=== PATIENT | female | born 1950 | race Caucasian/White ===

== ENCOUNTER 2020-03-12 04:47 | Emergency (ER) | payer OTHER ==
[~2020-03-12] VITALS: Ht 157.5 cm; Wt 66.7 kg
[2020-03-12 04:50] VITALS: Ht 157.5 cm; Wt 66.7 kg
[2020-03-12 07:15] VITALS: BP 148/79
== END 2020-03-12 07:15 | disposition home or self-care (01) ==
LOC: ED 04:47
DX: S92.334A Nondisplaced fracture of third metatarsal bone, right foot, initial encounter for closed fracture (principal); G89.29 Other chronic pain; M54.9 Dorsalgia, unspecified; I10 Essential (primary) hypertension; W06.XXXA Fall from bed, initial encounter; Y93.89 Activity, other specified; Y92.89 Other specified places as the place of occurrence of the external cause; Y99.8 Other external cause status